=== PATIENT | female | born 1950 | race Two or more races ===

== ENCOUNTER 2024-12-30 11:55 | Inpatient (IN) | payer MEDICAID, MEDICARE ==
[~2024-12-30] VITALS: Ht 170.2 cm; Wt 62.7 kg
[~2024-12-30 11:55] MED LIST: IBUP1TAB5 PO
--- NOTE | 2024-12-30 12:19 | ED.PDOC ---
GI ASSESSMENT HPI Comments 74 y.o female presents to the ED for a chief complaint of abdominal, bilateral hand and shoulder pain. Patient states yesterday she went to her storage unit, began sweating because it was hot and states abdominal pain presented then. She mentions having urine incontinence then too. Today while she was ambulating with her walker, it tipped over and as she reached over for it, abdominal pain worsened and brought new onset of shoulder and hand pain. She denies any falls or recent trauma. She denies nausea, vomiting, diarrhea, fever or chills. Chief Complaint: Abdominal Pain Time Seen by MD: 12:10 Reviewed Notes: Nurses Notes, Medications, Allergies Allergies: Coded Allergies: Diclofenac (Verified Allergy, Unknown, 12/29/24) Lidocaine (Verified Allergy, Unknown, 12/29/24) Home Meds Active Scripts Ibuprofen Micronized (Ibuprofen) 600 Mg Tab, 600 MG PO Q6HPRN PRN for 5 Days, #20 TAB Prov:GEOFF YOUSIF ALYSSA 12/30/24 Information Source: Patient Mode of Arrival: EMS Timing: Days (1) Duration: Since onset Quality: Aching Vomitus: None Stool: Normal Severity: Moderate Recent: None Recent Hx of: None Pain Location: Diffuse Modifying Factors: Nothing Associated sign and symptoms: Abdominal Pain Past Medical History PAST MEDICAL HISTORY: Arthritis, CKF, Seizures Surgical History: Appendectomy 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: No Pertinent 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 Family History Family History: Reviewed,noncontributory to illness Social History Smoker: Non-Smoker Alcohol: Denies ETOH Use Drugs: Denies Drug Use Lives In: Home Constitutional: denies: chills, diaphoresis, fatigue, fever, malaise, sweats, weakness, others EENTM: denies: blurred vision, double vision, ear bleeding, ear discharge, ear drainage, ear pain, ear ringing, eye pain, eye redness, hearing loss, mouth pain, mouth swelling, nasal discharge, nose bleeding, nose congestion, nose pain, photophobia, tearing, throat pain, throat swelling, voice changes, others Respiratory: denies: cough, hemoptysis, orthopnea, SOB at rest, shortness of breath, SOB with excertion, stridor, wheezing, others Cardiovascular: denies: chest pain, dizzy spells, diaphoresis, Dyspnea on exertion, edema, irregular heart beat, left arm pain, lightheadedness, palpitations, PND, syncope, others Gastrointestinal: reports: abdominal pain; denies: abdomen distended, blood streaked bowels, constipated, diarrhea, dysphagia, difficulty swallowing, hematemesis, melena, nausea, poor appetite, poor fluid intake, rectal bleeding, rectal pain, vomiting, others Genitourinary: denies: abnormal vagina bleeding, burning, dyspareunia, dysuria, flank pain, frequency, hematuria, incontinence, pain, , vagina discharge, urgency, others Neurological: denies: dizziness, fainting, headache, left sided numbness, left sided weakness, numbness, paresthesia, pre-existing deficit, right sided numbness, right sided weakness, seizure, speech problems, tingling, tremors, weakness, others Musculoskeletal: reports: others; denies: back pain, gout, joint pain, joint swelling, muscle pain, muscle stiffness, neck pain Integumetry: denies: bruises, change in color, change in hair/nails, dryness, laceration, lesions, lumps, rash, wounds, others Allergic/Immunocompromised: denies: Difficulty Healing, Frequent Infections, Hives, Itching, others Hematologic/Lymphatic: denies: anemia, blood clots, easy bleeding, easy bruising, swollen glands, others Endocrine: denies: excessive hunger, excessive sweating, excessive thirst, excessive urination, flushing, intolerance to cold, intolerance to heat, u nexplained weight gain, unexplained weight loss, others Psychiatric: denies: anxiety, bipolar disorder, depression, hopeless, panic disorder, schizophrenia, sleepless, suicidal, others All Other Systems: Reviewed and Negative Physical Exam General Appearance: Moderate Distress HEENT: Normal ENT Inspection, Pharynx Normal, TMs Normal Neck: Full Range of Motion, Non-Tender, Normal, Normal Inspection Respiratory: Chest Non-Tender, Lungs Clear, No Accessory Muscle Use, No Respiratory Distress, Normal Breath Sounds Cardiovascular: No Edema, No JVD, No Murmur, No Gallop, Normal Peripheral Pulses, Regular Rate/Rhythm Breast Exam: Deferred Gastrointestinal: Diffuse, No Organomegaly, No Pulsatile Mass, Normal Bowel Sounds, Soft, Tenderness Genitalia: Deferred Pelvic: Deferred Rectal: Deferred Extremities: No calf tenderness, Normal capillary refill, Normal inspection, Normal range of motion, Non-tender, No pedal edema Musculoskeletal : Apperance: Normal Neurologic: Alert, accounts receivable supervisor II-XII nml as Tested, No Motor Deficits, Normal Affect, Normal Mood, No Sensory Deficits Cerebellar Function: Normal Reflexes: Normal Skin: Dry, Normal Color, Warm Lymphatic: No Adenopathy Was a procedure done? Was a procedure done?: No GI differential Dx Differential Diagnosis: Esophagitis, Gastritis/PUD, Gastroenteritis X-Ray, Labs, Meds, VS Vital Signs Date Time Temp Pulse Resp B/P (MAP) Pulse Ox O2 Delivery O2 Flow Rate FiO2 12/30/24 12:06 97.6 99 16 160/93 98 97.6 Lab Test 12/30/24 12:34 Range/Units White Blood Count 6.6 4.4-10.8 10^3/uL Red Blood Count 4.01 4.0-5.20 10^6/uL Hemoglobin 12.1 L 12.2-16.2 g/dL Hematocrit 35.8 L 36.0-46.0 % Mean Corpuscular Volume 89.5 80.0-100.0 fL Mean Corpuscular Hemoglobin 30.1 28.0-32.0 pg Mean Corpuscular Hemoglobin Concent 33.6 32.0-36.0 g/dL Red Cell Distribution Width 15.5 H 11.8-14.3 % Platelet Count 309 140-450 10^3/uL Mean Platelet Volume 8.0 6.9-10.8 fL Neutrophils (%) (Auto) 75.5 37.0-80.0 % Lymphocytes (%) (Auto) 15.0 10.0-50.0 % Monocytes (%) (Auto) 7.5 0.0-12.0 % Eosinophils (%) (Auto) 1.2 0.0-7.0 % Basophils (%) (Auto) 0.8 0.0-2.0 % Neutrophils # (Auto) 5.0 1.6-8.6 10 ^3/uL Lymphocytes # (Auto) 1.0 0.4-5.4 10 ^3/uL Monocytes # (Auto) 0.5 0-1.3 10 ^3/uL Eosinophils # (Auto) 0.1 0-0.8 10 ^3/uL Basophils # (Auto) 0.1 0-0.2 10 ^3/uL Nucleated Red Blood Cells 0.0 % Sodium Level 142 136-145 mmol/L Potassium Level 3.9 3.5-5.1 mmol/L Chloride Level 106 98-107 mmol/L Carbon Dioxide Level 26 20-31 mmol/L Anion Gap 10 5-15 Blood Urea Nitrogen 14 9-23 mg/dL Creatinine 0.75 0.550-1.02 mg/dL Glomerular Filtration Rate Calc 84 >90 mL/min BUN/Creatinine Ratio 18.7 10.0-20.0 Serum Glucose 112 H 74-106 mg/dL Calcium Level 9.9 8.7-10.4 mg/dL Lipase 32 12-53 U/L The patient's CBC is within normal limits The chemistry panel is within normal limits The lipase is within normal limits At this time, the patient is being admitted to the hospitalist A CAT scan of the abdomen and pelvis shows: IMPRESSION: 1. No bowel obstruction, fluid collection, or free air. 2. Moderate retained stool in the colon suggesting constipation. 3. Mild cardiomegaly and at least mild calcified coronary artery disease, partially imaged. 4. Moderate hiatal hernia. 5. Ptotic and malrotated bilateral kidneys. No hydronephrosis. At this time, the patient is being admitted Images Reviewed?: Images reviewed and evaluated by me Time of 1ST Reevaluation: 12:19 Reevaluation 1ST: Unchanged Patient Education/Counseling: Diagnosis, Treatment, Prognosis Family Education/Counseling: No Family Present SEPSIS Sepsis Screen Physician Orders Urinalysis (12/30/24 12:15) Ct Ab Pel Wo Con-No Oral Or Iv (12/30/24 12:15) Vital Signs Date Time Temp Pulse Resp B/P (MAP) Pulse Ox O2 Delivery O2 Flow Rate FiO2 12/30/24 12:06 97.6 99 16 160/93 98 97.6 Laboratory Tests Test 12/30/24 12:34 White Blood Count 6.6 10^3/uL (4.4-10.8) Departure 1 Departure Time of Disposition: 16:12 Impression: Primary Impression: Intractable abdominal pain Disposition: ADMITTED INPATIENT Admit to: Med Surg Condition: Fair Critical Care Note Critical Care Time?: No Stability Stability form required: Yes Unstable for transfer: ED Physician Assesment (Clinical assesment) I personally scribed for KARL VALDOVINOS MD ([email or web address]) on 12/30/24 at 12:19. Electronically submitted by Parul Bourne ([facility]). KARL VALDOVINOS MD Dec 30, 2024 12:19
[2024-12-30 12:51] LABS: Hematocrit 35.8 % (36.0-46.0); Hemoglobin 12.1 g/dL (12.2-16.2); Mean Corpuscular Hemoglobin 30.1 pg (28.0-32.0); Mean Corpuscular Volume 89.5 fL (80.0-100.0); Nucleated Red Blood Cells % 0.0 %
[2024-12-30 13:03] LABS: Chloride 106 mmol/L (98-107); Potassium 3.9 mmol/L (3.5-5.1); Sodium 142 mmol/L (136-145)
[2024-12-30 13:04] LABS: Anion Gap 10 (5-15); Calcium 9.9 mg/dL (8.7-10.4); Carbon Dioxide 26 mmol/L (20-31)
[2024-12-30 13:09] LABS: BUN/Creatinine Ratio 18.7 (10.0-20.0); Blood Urea Nitrogen 14 mg/dL (9-23); Lipase 32 U/L (12-53)
[2024-12-30 13:12] LABS: Glucose 112 mg/dL (74-106)
--- NOTE | 2024-12-30 15:26 | DVH ---
CLINICAL HISTORY: Abdominal pain TECHNIQUE: CT of the abdomen and pelvis was performed without intravenous contrast. This exam was performed according to our departmental dose optimization program. Up-to-date CT equipment and radiation dose reduction techniques are utilized as appropriate. CTDI: 12.87 DLP: 603.18 WID: COMPARISON: Report from CT CT AB PEL WO CON-NO ORAL OR IV on DOS: 11/27/24 FINDINGS: Lower Thorax: Minimal linear bibasilar scarring or atelectasis. There is a moderate hiatal hernia. Mild cardiomegaly. Partially imaged at least mild coronary artery calcifications. Liver and Biliary system: Normal-sized liver. There is a well-defined hypodensity in segment 4B of the liver not optimally evaluated without contrast. Gallbladder is normal caliber. There is no biliary ductal dilatation. Spleen: Unremarkable. Adrenal Glands and Kidneys: Ptotic and malrotated bilateral kidneys. There is no hydronephrosis or nephrolithiasis. Adrenal glands are grossly unremarkable. Pancreas and Retroperitoneum: Grossly normal pancreas. Mildly prominent though predominantly normal-sized retroperitoneal lymph nodes. Aorta and Major Vessels: Aortoiliac vessels are normal in caliber containing Mild calcified plaque. Bowel, Mesentery and Peritoneal space: Normal caliber small and large bowel. Moderate retained stool in the colon. There is no free intraperitoneal air or loculated fluid collection. Pelvis: Streak artifact from external to the patient slightly limits evaluation of the pelvis. Urinary bladder is mildly distended. The uterus appears present with a subserosal calcified fibroid on the right on series 5, image 118. No pelvic lymphadenopathy. Abdominal wall and Osseous Structures: Mild body wall edema. Multilevel lumbar spondylosis. There is mild left convexity scoliosis of the lumbar spine. There is [id number] right and mild left hip osteoarthritis. IMPRESSION: 1. No bowel obstruction, fluid collection, or free air. 2. Moderate retained stool in the colon suggesting constipation. 3. Mild cardiomegaly and at least mild calcified coronary artery disease, partially imaged. 4. Moderate hiatal hernia. 5. Ptotic and malrotated bilateral kidneys. No hydronephrosis.
[2024-12-30] MEDS ORDERED: ACETAMINOPHEN 325 MG TAB PO PRN (17:00)
--- NOTE | 2024-12-30 17:59 | DVH ---
INDICATION: eval ruq TECHNIQUE: Multiple real-time sonographic images of the abdomen were obtained. COMPARISON: None FINDINGS: The liver is homogenous in echogenicity. The liver measures 16.32 cm. No intrahepatic biliary ductal dilatation is noted. The gallbladder wall measures 0.12 cm and is unremarkable. No gallstones or sludge is seen. The common duct measures 1.28 cm and is dilated. No pericholecystic fluid is noted. The right kidney is not visible The pancreas is not well visualized due to obscuration from bowel gas. The visualized portions of the IVC and aorta are grossly unremarkable. IMPRESSION: 1. Liver measures 16.32 cm long and the parenchyma is heterogeneous. 2. Gallbladder appears normal with a dilated common bile duct. 3. Negative sonographic Smallwood's sign. 4. Right kidney not visible.
[2024-12-30 19:03] LABS: Alanine Aminotransferase 13 U/L (7-40); Albumin 4.4 g/dL (3.2-4.8); Alkaline Phosphatase 93 U/L (46-116); Bilirubin, Total 0.4 mg/dL (0.2-1.0); Total Protein 7.2 g/dL (5.7-8.2)
[2024-12-30 19:05] LABS: Bilirubin, Direct < 0.1 mg/dL (<0.3)
--- NOTE | 2024-12-30 19:14 | DVHHPRES ---
History of Present Illness Resident Creating Document: MAME NEW RESIDENT History of Present Illness Patient is a 74-year-old female with past medical history of COPD, CHF, schizophrenia, ME? , seizures, gastric ulcers? anxiety, hypertension, narcolepsy, psychosis? , anxiety, ADHD, who comes in due to acute intractable abdominal pain. According to the patient, she has been having abdominal pain for the last 4-5 years, however, starting yesterday her pain worsened which is what prompted this visit to the hospital. Patient notes that she went to a store airspace with a lot was very hot and she started sweating profusely shortly after she went outside and vomited x1, vomitus did not contain any blood urine also had an episode of urinary incontinence. Patient notes as she was walking using her walker later that day the walker toppled over and as she leaned over to pharmacy picking tech the walker she started experiencing abdominal pain which was gradual in onset, 10/10 at the time of onset, burning in nature and intermittent with radiation to bilateral shoulders. Patient localizes it to the midepigastric region and notes worsened with eating and improved with lying flat. Patient is difficult to follow in conversation, is extremely guarded and does not answer questions accurately and/or truth fully. On review of systems patient is complaining of dysuria, chills, shortness of breaths and constipation. Past Medical History COPD, CHF, schizophrenia, ME? , seizures, gastric ulcers? anxiety, hypertension, narcolepsy, psychosis? , anxiety, ADHD Past Surgical History Appendectomy, gastric banding Past Social History Smoking: Quit smoking 2002, prior to that 15 cigarettes per day for the last 15-20 years Alcohol: Denies Drugs: Denies Lives alone a times unhoused, at times in a motel. Denies having any next of kin. Review of Systems Constitutional: Yes: Chills; No: Fever, Sweats, Weakness, Malaise, Other Eyes: No: Pain, Vision change, Conjunctivae inflammation, Eyelid inflammation, Other, Redness ENT: No: Ear pain, Ear discharge, Nose pain, Nose discharge, Nose congestion, Mouth pain, Mouth swelling, Throat pain, Throat swelling, Other Respiratory: Shortness of breath; No: Cough, Dry, SOB with excertion, Wheezing, Hemoptysis, Pleuritic Pain, Sputum, Wheezing, Other Cardiovascular: No: Chest Pain, Palpitations, Orthopnea, Paroxysmal Noc. Dyspnea, Edema, Lt Headedness, Other Gastrointestinal: Constipation; No: Nausea, Vomiting, Abdominal Pain, Diarrhea, Melena, Hematochezia, Other Genitourinary: Dysuria; No Frequency, No Incontinence, No Hematuria, No Retention, No Other Musculoskeletal: No: other, neck pain, shoulder pain, arm pain, back pain, hand pain, leg pain, foot pain Skin: No: Rash, Lesions, Jaundice, Bruising, Other Neurological: No: Weakness, Numbness, Incoordination, Change in speech, Confusion, Seizures, Other Allergies: Coded Allergies: Diclofenac (Verified Allergy, Unknown, 12/29/24) Lidocaine (Verified Allergy, Unknown, 12/29/24) Medications Current Medications Medications Dose Ordered Sig/Dari Route Start Time Stop Time Status Last Admin Dose Admin Acetaminophen 325 mg Q4HP PRN PO 12/30/24 17:00 Acetaminophen/ Hydrocodone Bitart 1 tab Q4HP PRN PO 12/30/24 17:00 Docusate Sodium 100 mg BIDPRN PRN PO 12/30/24 17:00 Enoxaparin Sodium 40 mg DAILY SC 12/31/24 10:00 Exam Vital Signs Vital Signs Date Time Temp Pulse Resp B/P (MAP) Pulse Ox O2 Delivery O2 Flow Rate FiO2 12/30/24 16:09 98.0 86 16 169/99 (122) 94 98.0 General Appearance: Alert, Oriented X3, No acute distress HEENT: Atraumatic, PERRLA, EOMI, Other (Dry mucous membranes) Respiratory: Normal air movement Cardiovascular: Regular rate, Normal S1, Normal S2 Abdominal: Normal bowel sounds, Other (Soft but distended, tenderness to palpation in the midepigastric area) Extremities: No edema, Normal pulses Neuro: Normal speech Labs/Xrays Labs Test 12/30/24 18:14 12/30/24 12:34 Range/Units White Blood Count 6.6 4.4-10.8 10^3/uL Red Blood Count 4.01 4.0-5.20 10^6/uL Hemoglobin 12.1 L 12.2-16.2 g/dL Hematocrit 35.8 L 36.0-46.0 % Mean Corpuscular Volume 89.5 80.0-100.0 fL Mean Corpuscular Hemoglobin 30.1 28.0-32.0 pg Mean Corpuscular Hemoglobin Concent 33.6 32.0-36.0 g/dL Red Cell Distribution Width 15.5 H 11.8-14.3 % Platelet Count 309 140-450 10^3/uL Mean Platelet Volume 8.0 6.9-10.8 fL Neutrophils (%) (Auto) 75.5 37.0-80.0 % Lymphocytes (%) (Auto) 15.0 10.0-50.0 % Monocytes (%) (Auto) 7.5 0.0-12.0 % Eosinophils (%) (Auto) 1.2 0.0-7.0 % Basophils (%) (Auto) 0.8 0.0-2.0 % Neutrophils # (Auto) 5.0 1.6-8.6 10 ^3/uL Lymphocytes # (Auto) 1.0 0.4-5.4 10 ^3/uL Monocytes # (Auto) 0.5 0-1.3 10 ^3/uL Eosinophils # (Auto) 0.1 0-0.8 10 ^3/uL Basophils # (Auto) 0.1 0-0.2 10 ^3/uL Nucleated Red Blood Cells 0.0 % Sodium Level 142 136-145 mmol/L Potassium Level 3.9 3.5-5.1 mmol/L Chloride Level 106 98-107 mmol/L Carbon Dioxide Level 26 20-31 mmol/L Anion Gap 10 5-15 Blood Urea Nitrogen 14 9-23 mg/dL Creatinine 0.75 0.550-1.02 mg/dL Glomerular Filtration Rate Calc 84 >90 mL/min BUN/Creatinine Ratio 18.7 10.0-20.0 Serum Glucose 112 H 74-106 mg/dL Calcium Level 9.9 8.7-10.4 mg/dL Lipase 32 12-53 U/L SEPSIS Sepsis Screen Date sepsis recognized/suspect: Dec 30, 2024 Time Sepsis recognized/suspect: 1206 Recent Procedure: No On Antibiotic Therapy: No Respiratory Rate >20: No Heart Rate >90: Yes Temp<36 C (96.8 F) or >38.3 C: No SBP <90 or MAP <65 mmHG: No New Acute Mental Status Change: No Is the patient on CPAP, BIPAP,: No Physician Orders Urinalysis (12/30/24 12:15) Ct Ab Pel Wo Con-No Oral Or Iv (12/30/24 12:15) Admit (12/30/24 16:49) Allergies (12/30/24 16:49) Code Status (12/30/24 16:49) Acetaminophen Tablet (Tylenol Tablet) (12/30/24 17:00) Hydrocodone-Acet 5/325mg Tab ([place] 5/32 (12/30/24 17:00) Docusate Sodium Capsule (Colace Capsule) (12/30/24 17:00) Enoxaparin Sodium (Lovenox) (12/31/24 10:00) Complete Blood Count (12/31/24 04:00) Comprehensive Metabolic Panel (12/31/24 04:00) Pt Request For Service (12/30/24 16:49) Echo 2d Mode Cardiac Dop (12/30/24 16:49) Condition: Unstable (12/30/24 16:49) Clear Liq Diet (12/30/24 Dinner) Notify Md Of Changes From Base (12/30/24 16:49) Abdomen Limited (12/30/24 16:49) Lactic Acid W/ Reflex Order (12/30/24 17:22) Hepatic Panel (12/30/24 18:45) Vital Signs Date Time Temp Pulse Resp B/P (MAP) Pulse Ox O2 Delivery O2 Flow Rate FiO2 12/30/24 16:09 98.0 86 16 169/99 (122) 94 98.0 12/30/24 12:06 97.6 99 16 160/93 98 97.6 Laboratory Tests Test 12/30/24 12:34 12/30/24 18:14 White Blood Count 6.6 10^3/uL (4.4-10.8) Lactic Acid Level Pending Assessment/Plan Assessment/Plan Acute intractable abdominal pain - CT abdomen pelvis: No bowel obstruction, fluid collection, or free air. Moderate retained stool in the colon suggesting constipation. Mild cardiomegaly and at least mild calcified coronary artery disease, partially imaged. Moderate hiatal hernia. Ptotic and malrotated bilateral kidneys. No hydronephrosis. - right upper quadrant ultrasound: . Liver measures 16.32 cm long and the parenchyma is heterogeneous. Gallbladder appears normal with a dilated common bile duct. Negative sonographic Smallwood's sign. Right kidney not visible. History of COPD, not in exacerbation - ipratropium albuterol med nebs q.6 PRN - COVID influenza Essential hypertension Diastolic dysfunction - echo from August 2024 shows lvef 60% by visual estimate, normal rv function, left atrium enlarged, no severe valve abnormaliteis noted . mild MAC - IV labetalol 5 mg q.6 hours p.r.n. for SBP >165 Psychosis versus schizophrenia - patient unsure of home medication she takes and unable to provide an accurate past medical history - psych consult PUD prophylaxis: protonix 40mg DVT prophylaxis: Levonox 40mg Goals of care: Full code, discussed for >16 minutes on were 12/30/2024 Plan discussed with patient Plan discussed with Dr. Flanagan Plan discussed with: Patient, Other (RN) My Orders Orders - MAME NEW RESIDENT Procedure Category Date Status Time Admit ADMIT 12/30/24 Transmitted 16:49 Allergies REJI 12/30/24 In Process 16:49 Code Status CODE 12/30/24 Transmitted 16:49 Acetaminophen Tablet PHA 12/30/24 In Process (Tylenol Tablet) 17:00 Hydrocodone-Acet PHA 12/30/24 In Process 5/325mg Tab ([place] 17:00 Docusate Sodium PHA 12/30/24 In Process Capsule (Colace 17:00 Enoxaparin Sodium PHA 12/31/24 In Process (Lovenox) 10:00 Complete Blood Count LAB 12/31/24 Verified 04:00 Comprehensive LAB 12/31/24 Verified Metabolic Panel 04:00 Pt Request For Service PT 12/30/24 Logged 16:49 Echo 2d Mode Cardiac US 12/30/24 Logged DOP 16:49 Condition: Unstable REJI 12/30/24 In Process 16:49 Clear Liq Diet DIET 12/30/24 Transmitted Dinner Notify Of Changes REJI 12/30/24 In Process From Base 16:49 Abdomen Limited US 12/30/24 Resulted 16:49 Lactic Acid W/ Reflex LAB 12/30/24 In Process Order 17:22 Hepatic Panel LAB 12/30/24 In Process 18:45 Date of Service: Dec 30, 2024 Billing Provider: MARITZA FLANAGAN MD Common Visit Codes: 09323-MGWQMRB INP/OBS CARE (HIGH) Secondary Visit Codes: 50678-[id number] CARE PLAN 30 MINUTES MAME NEW Dec 30, 2024 19:14
[2024-12-30 19:31] VITALS: PULSE 78; RESP 18; O2SAT 98
[2024-12-30] MEDS: IPRATROPIUM BROM 0.5 MG/2.5ML INH SOL NEB PRN (19:31)
[2024-12-30] MEDS: ALBUTEROL SULF 2.5 MG/0.5ML(0.5%) NEB SOLN NEB PRN (19:31)
[2024-12-30 19:39] VITALS: PULSE 76; RESP 18; O2SAT 100
[2024-12-30] MEDS: HYDROcodone-ACET 5/325MG TAB PO PRN (19:52)
[2024-12-30 19:53] VITALS: PULSE 86; RESP 18; O2SAT 96
[2024-12-30 20:00] VITALS: BP 157/84; PULSE 78; RESP 18; TEMP 98.6; O2SAT 98
[2024-12-30 21:45] LABS: COVID19 ANTIGEN SOFIA FIA NEGATIVE (NEGATIVE)
[2024-12-30 22:43] VITALS: BP 150/66; PULSE 77; RESP 16; RESP 17; TEMP 98.6; O2SAT 98; O2SAT 99
[2024-12-31] VITALS (9 sets, daily range): BP systolic 132–168; BP diastolic 74–103; PULSE 16–85; RESP 16–18; TEMP 97.8–98.4; O2SAT 96–98
[2024-12-31] MEDS: clonazePAM 0.5 MG TAB PO PRN (00:52)
[2024-12-31] MEDS: LABETALOL HCL 20 MG/4 ML VL IV PRN (05:29)
[2024-12-31] MEDS: PANTOPRAZOLE 40 MG TAB PO SCH (05:29)
[2024-12-31] MEDS ORDERED: ALBUTEROL SULF 2.5 MG/0.5ML(0.5%) NEB SOLN NEB SCH (06:00)
[2024-12-31 06:57] LABS: Hematocrit 33.5 % (36.0-46.0); Hemoglobin 11.2 g/dL (12.2-16.2); Mean Corpuscular Hemoglobin 29.7 pg (28.0-32.0); Mean Corpuscular Volume 89.1 fL (80.0-100.0); Nucleated Red Blood Cells % 0.0 %
[2024-12-31 07:21] LABS: Alanine Aminotransferase 12 U/L (7-40); Alkaline Phosphatase 74 U/L (46-116); Anion Gap 10 (5-15); BUN/Creatinine Ratio 12.5 (10.0-20.0); Calcium 8.9 mg/dL (8.7-10.4); Carbon Dioxide 26 mmol/L (20-31); Glucose 98 mg/dL (74-106); Potassium 3.7 mmol/L (3.5-5.1); Sodium 145 mmol/L (136-145); Total Protein 6.3 g/dL (5.7-8.2)
[2024-12-31 07:22] LABS: Albumin 3.7 g/dL (3.2-4.8); Bilirubin, Total 0.6 mg/dL (0.2-1.0)
[2024-12-31 07:28] LABS: Blood Urea Nitrogen 7 mg/dL (9-23); Chloride 109 mmol/L (98-107)
[2024-12-31] MEDS: ENOXAPARIN SOD 40 MG/0.4 ML SYRINGE SC SCH (09:04)
--- NOTE | 2024-12-31 17:17 | DVHPNRES ---
Progress Note Date Seen: Dec 31, 2024 Resident Creating Document: JOANNA BILLY RESIDENT Medical Necessity Reason Pt with a Central, PICC or Fol: No Subjective Review of Systems Patient is a 74-year-old female with past medical history of COPD, CHF, schizophrenia, OK? , seizures, gastric ulcers? anxiety, hypertension, narcolepsy, psychosis? , anxiety, ADHD, who comes in due to acute intractable abdominal pain. According to the patient, she has been having abdominal pain for the last 4-5 years, however, starting yesterday her pain worsened which is what prompted this visit to the hospital. Patient notes that she went to a store airspace with a lot was very hot and she started sweating profusely shortly after she went outside and vomited x1, vomitus did not contain any blood urine also had an episode of urinary incontinence. Patient notes as she was walking using her walker later that day the walker toppled over and as she leaned over to last picker the walker she started experiencing abdominal pain which was gradual in onset, 10/10 at the time of onset, burning in nature and intermittent with radiation to bilateral shoulders. Patient localizes it to the midepigastric region and notes worsened with eating and improved with lying flat. Patient is difficult to follow in conversation, is extremely guarded and does not answer questions accurately and/or truth fully. On review of systems patient is complaining of dysuria, chills, shortness of breaths and constipation. Past Medical History COPD, CHF, schizophrenia, OK? , seizures, gastric ulcers? anxiety, hypertension, narcolepsy, psychosis? , anxiety, ADHD Past Surgical History Appendectomy, gastric banding Past Social History Smoking: Quit smoking 2002, prior to that 15 cigarettes per day for the last 15-20 years Alcohol: Denies Drugs: Denies Lives alone a times unhoused, at times in a motel. Denies having any next of kin. General: patient denies fever, fatigue, weaknes, sweating, any recent changes in appetite and weight HEENT: No headaches, visiual changes, hearing loss, tinnitus, nasal congestion and discharge, and sore throat. Cardiovascular: Denies chest pain, palpitations, dyspnea on exertion, orthopnea, or claudication. Respiratory: No cough, and wheezing. Gastrointestinal: Denies nausea, vomiting, dysphagia, odynophagia, heartburn,flatulence, bloating, diarrhea, constipation, change in stool, or blood in stool.Complains of abdominal pain Genitourinary: No dysuria, hematuria, discharge, frequency, urgency, nocturia, incontinence, and urinary retention. Endocrine: No heat or cold intolerance, polydipsia, polyuria, and polyphagia. Neurological: No dizziness, extremity weakness and numbness, tremors, gait disturbance, seizures, and memory impairment. Psychiatric: Denies depression, anxiety,or insomnia. Musculoskeletal: Denies neck pain, stiffness and swelling, back pain, muscle weakness, joint pain, stiffness, swelling, or limited range of motion. Skin: No rashes, itching, skin lesion, changes in hair, nail, skin texture and breast. Hematologic/Lymphatic: Denies easy bruising, bleeding tendencies, or lymph node enlargement. Objective vital signs Vital Sign Date Time Temp Pulse Resp B/P (MAP) Pulse Ox O2 Delivery O2 Flow Rate FiO2 12/31/24 16:43 98.0 77 16 145/87 (106) 96 98.0 12/31/24 10:00 Room Air 0.0 12/31/24 10:00 21 Total Intake and Output 12/30/24 12/30/24 12/31/24 15:00 23:00 07:00 Intake Total 240 ml Balance 240 ml medications Current Medications Medications Dose Ordered Sig/Dari Route Start Time Stop Time Status Last Admin Dose Admin Acetaminophen 325 mg Q4HP PRN PO 12/30/24 17:00 Acetaminophen/ Hydrocodone Bitart 1 tab Q4HP PRN PO 12/30/24 17:00 12/31/24 14:08 1 TAB Docusate Sodium 100 mg BIDPRN PRN PO 12/30/24 17:00 Enoxaparin Sodium 40 mg DAILY SC 12/31/24 10:00 12/31/24 09:04 40 MG Ipratropium [place] 0.5 mg Q6HPRN PRN NEB 12/30/24 19:15 12/30/24 19:31 0.5 MG Labetalol HCl 5 mg Q6HPRN PRN IV 12/30/24 19:15 12/31/24 05:29 5 MG Pantoprazole Sodium 40 mg DAILY@0600 PO 12/31/24 06:00 12/31/24 05:29 40 MG Albuterol 2.5 mg Q6HPRN PRN NEB 12/30/24 19:15 12/30/24 19:31 2.5 MG Clonazepam 1 mg Q12HP PRN PO 12/31/24 00:15 12/31/24 03:38 1 MG Polyethylene Glycol 17 gm DAILYPRN PRN PO 12/31/24 13:15 Examination General Appearance: Alert, Oriented X3, Cooperative, No acute distress HEENT: Atraumatic, PERRLA, EOMI, Mucous membrane moist/pink Respiratory: Clear to auscultation, Normal air movement Cardiovascular: Regular rate, Normal S1, Normal S2, No murmurs, no chest wall tenderness Abdominal: Normal bowel sounds, Soft, No hepatospenomegaly, No masses, mild tenderness in the midepigastric area Extremities: No clubbing, No cyanosis, No edema, Normal pulses, No tenderness/swelling Skin: No rashes, No breakdown, No significant lesion Neuro: Normal gait, Normal speech, Strength at 5/5 X4 ext, Normal tone, Sensation intact, Cranial nerves 3-12 NL, Reflexes 2+ Psych/Mental Status: Mental status NL, Mood NL laboratory and microbiology Laboratory Tests 12/31/24 05:56 Test 12/31/24 05:56 Range/Units Serum Glucose 98 74-106 mg/dL Microbiology Date/Time Source Procedure Growth Status 12/31/24 04:00 Nose MRSA Screen - Final Complete Problem List/Assessment/Plan Problem List/Assessment/Plan Assessment and plan Acute intractable abdominal pain Possible Choledocholithiasis - CT abdomen pelvis: No bowel obstruction, fluid collection, or free air. Moderate retained stool in the colon suggesting constipation. Mild cardiomegaly and at least mild calcified coronary artery disease, partially imaged. Moderate hiatal hernia. Ptotic and malrotated bilateral kidneys. No hydronephrosis. - right upper quadrant ultrasound: . Liver measures 16.32 cm long and the parenchyma is heterogeneous. Gallbladder appears normal with a dilated common bile duct. Negative sonographic Smallwood's sign. Right kidney not visible. History of COPD, not in exacerbation - ipratropium albuterol med nebs q.6 PRN - COVID influenza Essential hypertension Diastolic dysfunction - echo from August 2024 shows lvef 60% by visual estimate, normal rv function, left atrium enlarged, no severe valve abnormaliteis noted . mild MAC - IV labetalol 5 mg q.6 hours p.r.n. for SBP >165 Psychosis/schizophrenia - patient unsure of home medication she takes and unable to provide an accurate past medical history - psych consult PUD prophylaxis: protonix 40mg DVT prophylaxis: Levonox 40mg Goals of care: Full code Plan discussed with patient Plan discussed with Dr. Palomares Plan discussed with: Patient My Orders My Orders Orders - JOANNA BILLY Procedure Category Date Status Time Consult Care [facility] 12/31/24 Transmitted Coordinator Date of Service: Dec 31, 2024 Billing Provider: BROCK PALOMARES MD Common Visit Codes: [id number] INP/OBS CARE(HIGH) JOANNA BILLY RESIDENT Dec 31, 2024 17:17 BROCK PALOMARES MD Dec 31, 2024 18:12
[2024-12-31 21:07] LABS: Urine Protein, UAD Negative (Negative)
[2025-01-01] VITALS (11 sets, daily range): BP systolic 120–161; BP diastolic 75–93; PULSE 76–88; RESP 14–18; TEMP 97.7–98.6; O2SAT 95–98
[2025-01-01] MEDS: POLYETHYLENE GLYCOL 17 GM PWDR PO PRN (01:06)
[2025-01-01] MEDS: DOCUSATE SOD 100 MG CAP PO PRN (09:17)
--- NOTE | 2025-01-01 15:39 | DVHDSRES ---
Discharge Summary Date of Admission Resident Creating Document: JOANNA BILLY RESIDENT Dec 30, 2024 at 16:49 Date of Discharge: Jan 01, 2025 Labs/Diagnostic Data: Laboratory Results Test 12/31/24 20:25 12/31/24 05:56 12/30/24 20:07 12/30/24 18:14 Urine Color Light-yellow (Yellow) Urine Clarity Clear (Clear) Urine pH 5.5 (5.0-9.0) Urine Specific [place] 1.018 (1.001-1.035) Urine Protein Negative (Negative) Urine Ketones Negative (Negative) Urine Blood Negative /uL (Negative) Urine Nitrite Negative (Negative) Urine Bilirubin Negative (Negative) Urine Urobilinogen Normal mg/dL (Negative) Urine Leukocyte Esterase Negative /uL (Negative) Urine RBC <1 /hpf (0 - 4) Urine Microscopic WBC 5 /HPF (0-5) Urine Squamous Epithelial Cells Few /hpf (<5) Urine Bacteria None seen /hpf (None Seen) Urine Mucus Few (None Seen) Urine Glucose Normal mg/dL (Normal) White Blood Count 6.4 10^3/uL (4.4-10.8) Red Blood Count 3.76 10^6/uL (4.0-5.20) Hemoglobin 11.2 g/dL (12.2-16.2) Hematocrit 33.5 % (36.0-46.0) Mean Corpuscular Volume 89.1 fL (80.0-100.0) Mean Corpuscular Hemoglobin 29.7 pg (28.0-32.0) Mean Corpuscular Hemoglobin Concent 33.3 g/dL (32.0-36.0) Red Cell Distribution Width 15.2 % (11.8-14.3) Platelet Count 280 10^3/uL (140-450) Mean Platelet Volume 8.3 fL (6.9-10.8) Neutrophils (%) (Auto) 73.0 % (37.0-80.0) Lymphocytes (%) (Auto) 16.3 % (10.0-50.0) Monocytes (%) (Auto) 7.6 % (0.0-12.0) Eosinophils (%) (Auto) 2.2 % (0.0-7.0) Basophils (%) (Auto) 0.9 % (0.0-2.0) Neutrophils # (Auto) 4.7 10 ^3/uL (1.6-8.6) Lymphocytes # (Auto) 1.0 10 ^3/uL (0.4-5.4) Monocytes # (Auto) 0.5 10 ^3/uL (0-1.3) Eosinophils # (Auto) 0.1 10 ^3/uL (0-0.8) Basophils # (Auto) 0.1 10 ^3/uL (0-0.2) Nucleated Red Blood Cells 0.0 % Sodium Level 145 mmol/L (136-145) Potassium Level 3.7 mmol/L (3.5-5.1) Chloride Level 109 mmol/L (98-107) Carbon Dioxide Level 26 mmol/L (20-31) Anion Gap 10 (5-15) Blood Urea Nitrogen 7 mg/dL (9-23) Creatinine 0.56 mg/dL (0.550-1.02) Glomerular Filtration Rate Calc 96 mL/min (>90) BUN/Creatinine Ratio 12.5 (10.0-20.0) Serum Glucose 98 mg/dL (74-106) Calcium Level 8.9 mg/dL (8.7-10.4) Total Bilirubin 0.6 mg/dL (0.2-1.0) Aspartate Amino Transferase (AST) 21 U/L (13-40) Alanine Aminotransferase (ALT) 12 U/L (7-40) Alkaline Phosphatase 74 U/L (46-116) Total Protein 6.3 g/dL (5.7-8.2) Albumin 3.7 g/dL (3.2-4.8) Influenza Type A Antigen Negative (Negative) Influenza Type B Antigen Negative (Negative) SARS-CoV-2 Antigen (Rapid) Negative (NEGATIVE) Lactic Acid Level 1.3 mmol/L (0.4-2.0) Test 12/30/24 12:34 Direct Bilirubin < 0.1 mg/dL (<0.3) Lipase 32 U/L (12-53) Other Laboratory Tests 12/31/24 05:56 Brief Hx & Hospital Course: Patient is a 74-year-old female with past medical history of COPD, CHF, schizophrenia,seizures, anxiety, hypertension, psychosis? , anxiety, ADHD, who comes in due to acute intractable abdominal pain. According to the patient, she has been having abdominal pain for the last 4-5 years, however, starting the past day her pain worsened which is what prompted this visit to the hospital. Patient noted that she went to a store air[place] with a lot was very hot and she started sweating profusely shortly after she went outside and vomited x1, vomitus did not contain any blood urine also had an episode of urinary incontinence. Patient noted as she was walking using her walker later that day the walker toppled over and as she leaned over to warp picker the walker she started experiencing abdominal pain which was gradual in onset, 10/10 at the time of onset, burning in nature and intermittent with radiation to bilateral shoulders. Patient localized it to the midepigastric region and noted worsenening with eating and improved with lying flat. Patient was difficult to follow in conversation, is extremely guarded. CT abdomen showed retained stool the colon suggesting constipation, mild cardiomegaly and mild calcified coronary artery disease, hiatal hernia and malrotated bilateral kidneys. liver ultrasound showed dilated common bile duct. During the course of the hospitalization, the patient improved clinically and is hence being discharged. Condition at Discharge: Fair Final Diagnosis/Problems List Possible Choledocholithiasis Slow transit constipation Mild calcified coronary artery disease History of COPD, not in exacerbation Malrotated bilateral kidneys Essential hypertension Diastolic dysfunction Hiatal hernia Psychosis/schizophrenia Discharge Disposition: Skilled Nursing Discharge Instruct/Medications Diet: Cardiac 2g Na,low cholest Activity: No Restrictions, As Tolerated Follow Up/Referral: F/u with PCP in 7 days Recommended to go to inpatient psychiatry facility but patient refused Medications: as per EHR Scheduled PRN Ibuprofen Micronized (Ibuprofen), 600 MG PO Q6HPRN PRN Discharge Statement: "Patient was advised to return to the ER or call 911 if any headaches, dizziness, shortness of breath, chest pain, abdominal pain, bleeding, fevers, or worsening of medical condition. Patient was counseled about treatment plan, medications, possible side effects, patientverbalized understanding. All questions were answered to the best of my ability. This discharge took greater then 30 minutes in planning, reviewing documentation, counseling the patient, and discussing with other team members." ASSESSMENT ASSESSMENT Assessment Acute abdominal pain secondary to ?IBS/anxiety Date of Service: Jan 01, 2025 Billing Provider: BROCK PALOMARES MD Common Visit Codes: [id number] DISCH DAY >30min THEJOANNA CRAIG Jan 01, 2025 15:39 BROCK PALOMARES MD Jan 02, 2025 06:29
[2025-01-02] VITALS (8 sets, daily range): BP systolic 135–163; BP diastolic 80–102; PULSE 69–75; RESP 16–18; TEMP 37.1; O2SAT 95–97
== END 2025-01-02 14:30 | disposition home or self-care (01) | DRG 392 ==
LOC: ER 11:55 → EDBD 11:55 → EDUNIT# 11:55 → OVERFLOW 16:49 → WEST WING 22:15
PROVIDERS: ADMIT Internal Medicine; ATTEND Internal Medicine
DX: K58.9 Irritable bowel syndrome, unspecified (principal); I11.0 Hypertensive heart disease with heart failure; I50.9 Heart failure, unspecified; K80.50 Calculus of bile duct without cholangitis or cholecystitis without obstruction; F20.9 Schizophrenia, unspecified; J44.9 Chronic obstructive pulmonary disease, unspecified; Q63.2 Ectopic kidney; K44.9 Diaphragmatic hernia without obstruction or gangrene; F41.9 Anxiety disorder, unspecified; I25.10 Atherosclerotic heart disease of native coronary artery without angina pectoris; K83.8 Other specified diseases of biliary tract; F90.9 Attention-deficit hyperactivity disorder, unspecified type; Z20.822 Contact with and (suspected) exposure to COVID-19; Z90.49 Acquired absence of other specified parts of digestive tract; Z88.6 Allergy status to analgesic agent; Z79.899 Other long term (current) drug therapy; Z88.8 Allergy status to other drugs, medicaments and biological substances; K59.01 Slow transit constipation
CPT/HCPCS: 36415; 74176; 76705; 80048; 80053; 80076; 81001; 83605; 83690; 85025; 87081; 87426; 87804; 93306; 94640; 97163; G0378